=== PATIENT | female | born 1945 | race Caucasian/White ===

== ENCOUNTER → 2017-11-20 08:46 | Outpatient (CLI) | payer MEDICARE, SELFPAY ==
[2017-11-20 10:35] LABS: Absolute Lymphocyte Count 1.54 X10^3/ul (0.83-4.51); Absolute Neutrophil Count 3.2 X10^3/uL (2.0-7.7); Basophil# 0.04 X10^3/uL; Basophil% 0.7 % (0-1); Eosinophil# 0.22 X10^3/uL; Hematocrit 42.5 % (37-47); Hemoglobin 14.3 g/dl (12.0-15.0); Lymphocyte # 1.54 X10^3/ul (4.0); Lymphocyte % 27.9 % (19-41); Mean Corp Hgb Conc 33.6 g/gl (32-36); Mean Corpuscular Hgb 32.9 pg (27.0-32.0); Mean Corpuscular Volume 97.9 fL (81-99); Mean Platelet Vol. 10.7 fl (6.2-12.0); Monocyte# 0.45 X10^3/uL; Monocyte% 8.2 % (0-10); Neutrophil # 3.24 X10^3/uL (2.7-7.7); Neutrophil % 58.8 % (47-70); Platelet Count 231 K/mm3 (150-450); RBC Distribution Width CV 12.2 % (11.6-14.6); RBC Distribution Width SD 43.3 fl (35.1-43.9); Red Blood Count 4.34 M/mm3 (4.2-5.4); White Blood Count 5.5 K/mm3 (4.4-11.0)
[2017-11-20 10:38] LABS: POSITIVE COUNT NO; POSITIVE DIFFERENTIAL NO; POSITIVE MORPHOLOGY NO
[2017-11-20 11:00] LABS: AST(SGOT) 53 U/L (15-37); Alanine Aminotransfer ALT/SGPT 27 U/L (13-56); Albumin, Serum 3.8 g/dL (3.2-5.0); Alkaline Phosphatase 76 U/L (45-117); Anion Gap 9 (5-15); BUN 13 mg/dL (7-18); BUN/Creat Ratio 15.9 RATIO (10-20); Calcium,Total 8.9 mg/dL (8.5-10.1); Chloride 108 mmol/L (98-107); Cholesterol 202 mg/dL (200); Creatinine, Serum 0.82 mg/dL (0.55-1.02); EST Glomerular Filtration Rate 73 mL/min (>60); Est Glom Filt Rate - Afr Amer 88 mL/min (>60); Free T3 2.4 pg/mL (2.18-3.98); Globulin 3.7 g/dL (2.2-4.2); Glucose 96 mg/dL (74-106); High Density Lipoprotein 52 mg/dL; Potassium 3.8 mmol/L (3.5-5.1); Protein, Total 7.5 g/dL (6.4-8.2); Sodium Level 140 mmol/L (136-145); T4 Free Direct 0.82 ng/dL (0.76-1.46); Thyroid Stim Hormone (TSH) 2.83 uIU/mL (0.358-3.74)
== END ==
PROVIDERS: Family Provider Family Medicine; PCP Family Medicine; Visit Provider Family Medicine
DX: E03.9 Hypothyroidism, unspecified (principal); F42.9 Obsessive-compulsive disorder, unspecified
CPT/HCPCS: 36415; 80053; 82465; 83718; 84439; 84443; 84481; 85025

== ENCOUNTER 2017-12-25 15:30 | Outpatient (RCR) | payer MEDICARE, SELFPAY ==
--- NOTE | 2017-11-30 14:06 | HP.PTEVAL_ITS ---
Patient's Visit Information FARIDA PERES is a 72 year old F referred to Physical Therapy by Delio Gipson with a diagnosis of B L>R RC tendonitis. Date of Evaluation: 11/30/17 Physical Therapist: Giovanna Cordova - Visit Plan Frequency: 1x/Week Duration: 4 Weeks Plan: 1X/ week for HEP for stretching into IR of B shoulders, AROM, AAROM, PROM of B shoulders, postural exercises, scapular strength, RC strength with HEP and ultrasould and MT for pain control. - Subjective Subjective: Pt reports that her shoulders (especially the L one) have been painful for YEARS. She has N hips replaced and now has had her cateracts done. She did get knocked off a stack of pillow uears ago and she did put her L arm back and it was painful for weeks. She did not get any x-rays done as of yet. Her shoulders dont hurt in sitting unless it is after about 7:30 at night and then she takes 2 tylenol at dinner time and sometimes with breakfast. The worst pain is in bed....she can not lye on L shoulder and soemtimes bothers her on the R shoulder. Pt would feel the pain move from the lateral side of her arm downward. When she gets the pain it is very sharp and painful to roll over on the side. In evenings it is more of an achy pain. She points to the posterior shoulder aspect of B shoulders. Has a hardtime unfstenening her bra. Holding her grandson she is afraid that she will drop him. - Pain R shoulder pain Pain Intensity (Out of 10): 0 Pain Intensity Range: 5 L shoulder Pain Intensity (Out of 10): 0 Pain Intensity Range: 6 - Objective Sitting posture: Sits with rounded shoulders. Full B shoulder AROM in all planes but tight IR... L to PSIS and R approx L3. Increase pain with IR at end range PROM L worse than the R..... Palpation: tender L posterior shoulder and R anterior shoulder under acromion. UE MMT: shld flex B 4/5, Shld abd B 4/5, Shld ER B 4/5, Shld IR B 4/5. Palpation: tender also L mid trap (knot palpable ). - Goals Goal 1:: I HEP Goal Time Frame: 4-6 Weeks Goal 2:: Decrease shouder pain to 2/10 at the most Goal Time Frame: 4-6 Weeks Goal 3:: sit with increase posture duing treatment sessions Goal Time Frame: 4-6 Weeks Goal 4:: Increase B shoulder PROM and AROM to WNL Goal Time Frame: 4-6 Weeks - Rehabilitation Potential Rehabilitation Potential: Good - Anticipated Interventions Patient/Client Instruction: Educate patient on: Plan of Care For the Purpose of:: To decrease pain, To decrease swelling/inflammation, To increase ROM, To improve nutrient delivery to tissue, To increase oxygenation perfusion, To improve muscle performance and motor function, To improve ability to perform ADL's, To increase tolerance to activity/condition/position, To decrease soft tissue restriction, To increase flexibility/ROM Therapeutic Exercise to Include: Strength training, Postural training, Flexibilty training, Passive ROM, Active ROM, Scapular Strength/Stabilization For the Purpose of:: To decrease pain, To decrease swelling/inflammation, To increase ROM, To improve nutrient delivery to tissue, To increase oxygenation perfusion, To improve muscle performance and motor function, To improve ability to perform ADL's, To increase tolerance to activity/condition/position, To improve health of tissue, To decrease soft tissue restriction, To increase flexibility/ROM Manual Therapy Techniques to Include: Passive ROM, Soft tissue mobilization For the Purpose of:: To decrease pain, To decrease swelling/inflammation, To increase ROM, To improve nutrient delivery to tissue, To increase oxygenation perfusion, To improve muscle performance and motor function, To improve health of tissue, To decrease soft tissue restriction, To increase flexibility/ROM Cryotherapy (ice pack, ice massage): Yes Thermo therapy (hot pack): Yes Ultrasound (thermal/non thermal): Yes For the Purpose of:: To decrease pain, To decrease swelling/inflammation, To increase ROM, To improve nutrient delivery to tissue Thank you for the opportunity to evaluate your patient. For Medicare and Medicare HMO plans, please review the plan of care and approve it. It will need to be FAXED BACK to us at [phone] for Medicare purposes. Please let me know if there are questions or concerns regarding this plan of care. Physician Signature: Date:
--- NOTE | 2017-12-25 15:30 | DT_ITS ---
This patient was seen during an EMR downtime December 24, 2017 - December 31, 2017. This patient may have a combination of paper and electronic documentation or all paper documentation. All documentation is viewable within the e-chart portion of [facility] for each patient visit.
--- NOTE | 2018-04-03 17:14 | HP.PT.NRP ---
HP - Discharge Summary (1) - Patient Information FARIDA PERES was seen in my office for initial evaluation on 11/30/17. The following Plan of Care was established for this patient: Initial Frequency: 1x/Week Initial Duration: 4 Weeks - Anticipated Interventions Patient/Client Instruction: Educate patient on: Plan of Care For the Purpose of:: To decrease pain, To decrease swelling/inflammation, To increase ROM, To improve nutrient delivery to tissue, To increase oxygenation perfusion, To improve muscle performance and motor function, To improve ability to perform ADL's, To increase tolerance to activity/condition/position, To decrease soft tissue restriction, To increase flexibility/ROM Therapeutic Exercise to Include: Strength training, Postural training, Flexibilty training, Passive ROM, Active ROM, Scapular Strength/Stabilization For the Purpose of:: To decrease pain, To decrease swelling/inflammation, To increase ROM, To improve nutrient delivery to tissue, To increase oxygenation perfusion, To improve muscle performance and motor function, To improve ability to perform ADL's, To increase tolerance to activity/condition/position, To improve health of tissue, To decrease soft tissue restriction, To increase flexibility/ROM Manual Therapy Techniques to Include: Passive ROM, Soft tissue mobilization For the Purpose of:: To decrease pain, To decrease swelling/inflammation, To increase ROM, To improve nutrient delivery to tissue, To increase oxygenation perfusion, To improve muscle performance and motor function, To improve health of tissue, To decrease soft tissue restriction, To increase flexibility/ROM Cryotherapy (ice pack, ice massage): Yes Thermo therapy (hot pack): Yes Ultrasound (thermal/non thermal): Yes For the Purpose of:: To decrease pain, To decrease swelling/inflammation, To increase ROM, To improve nutrient delivery to tissue This patient was last seen in our office 12/25/17. Pertinent comments regarding their Physical therapy will appear below: [facility] PT as pt did not schedule further appointments. At this point I will be discontinuing this patient from physical therapy. I would be happy to see this patient again in the future if found appropriate by the physician. Thank you! Giovanna Cordova
== END 2017-12-25 19:00 | disposition home or self-care (01) ==
LOC: PT 15:30
PROVIDERS: Family Provider Family Medicine; PCP Family Medicine; Visit Provider Family Medicine
DX: M75.22 Bicipital tendinitis, left shoulder (principal); M75.21 Bicipital tendinitis, right shoulder
CPT/HCPCS: 97035; 97110; 97161

== ENCOUNTER → 2018-06-05 12:30 | Outpatient (CLI) | payer MEDICARE, SELFPAY ==
[2018-06-05 14:41] LABS: AST(SGOT) 53 U/L (15-37); Alanine Aminotransfer ALT/SGPT 27 U/L (13-56); Albumin, Serum 3.7 g/dL (3.2-5.0); Alkaline Phosphatase 79 U/L (45-117); Anion Gap 9 (5-15); BUN 13 mg/dL (7-18); BUN/Creat Ratio 16.1 RATIO (10-20); Calcium,Total 9.2 mg/dL (8.5-10.1); Chloride 105 mmol/L (98-107); Creatinine, Serum 0.81 mg/dL (0.55-1.02); EST Glomerular Filtration Rate 74 mL/min (>60); Est Glom Filt Rate - Afr Amer 89 mL/min (>60); Globulin 3.7 g/dL (2.2-4.2); Glucose 78 mg/dL (74-106); Magnesium 2.2 mg/dL (1.6-2.6); Protein, Total 7.4 g/dL (6.4-8.2); Sodium Level 142 mmol/L (136-145); Thyroid Stim Hormone (TSH) 1.81 uIU/mL (0.358-3.74)
== END ==
PROVIDERS: Family Provider Family Medicine; PCP Family Medicine; Referring Provider Family Medicine; Visit Provider Family Medicine
DX: E03.9 Hypothyroidism, unspecified (principal); F42.9 Obsessive-compulsive disorder, unspecified
CPT/HCPCS: 36415; 80053; 83735; 84443

== ENCOUNTER → 2018-09-25 12:54 | Outpatient (CLI) | payer MEDICARE, SELFPAY ==
--- NOTE | 2018-09-25 12:57 | BI_ITS ---
MAMMOGRAPHY - BILATERAL SCREENING REASON FOR EXAM: Female, 73 years old. Routine annual screening examination. PERTINENT HISTORY: Non-contributory. TECHNIQUE: Digital bilateral breast angela (3D mammographic acquisition) in the CC and MLO projections. 2-D mediolateral oblique (MLO) and craniocaudad (CC) views of both breasts were obtained. CAD: Full Field Digital Mammography with Computer Added Detection was performed. COMPARISON: Comparison is made with prior study dated April 04, 2017 and July 02, 2014. FINDINGS: Breast Composition: There are scattered areas of fibroglandular density. There are no dominant masses or suspicious calcifications. No other significant abnormalities are identified. There has been no significant change since the prior study. BI/SCREENING MAMM (CAD), BILAT IMPRESSION: Stable bilateral screening mammogram. Yearly follow-up mammogram recommended. (A) ASSESSMENT CATEGORY: BIRADS Category 1: Negative. A letter regarding these results will be sent to the patient by the facility within 30 days. Approximately 10% of breast cancers are not detected by mammography. A normal mammogram should not delay biopsy of a clinically suspicious abnormality. [id number] Electronically Signed: Parish Yanez, at 15:06 EST , Service support ,
== END ==
PROVIDERS: Family Provider Family Medicine; PCP Family Medicine; Visit Provider Obstetrics & Gynecology Gynecology
DX: Z12.31 Encounter for screening mammogram for malignant neoplasm of breast (principal)
CPT/HCPCS: 77063; 77067

== ENCOUNTER → 2018-12-17 09:26 | Outpatient (CLI) | payer MEDICARE, SELFPAY ==
[2018-12-17 12:56] LABS: Anion Gap 10 (5-15); BUN 15 mg/dL (7-18); Calcium,Total 9.2 mg/dL (8.5-10.1); Chloride 105 mmol/L (98-107); Cholesterol 215 mg/dL (200); Creatinine, Serum 0.88 mg/dL (0.55-1.02); EST Glomerular Filtration Rate 66 mL/min (>60); Est Glom Filt Rate - Afr Amer 80 mL/min (>60); Glucose 90 mg/dL (74-106); High Density Lipoprotein 56 mg/dL; Potassium 3.9 mmol/L (3.5-5.1); Sodium Level 141 mmol/L (136-145); Thyroid Stim Hormone (TSH) 2.94 uIU/mL (0.358-3.74); Triglycerides 151 mg/dL; Very Low Density Lipoprotein 30 mg/dL (5-40)
== END ==
PROVIDERS: Family Provider Family Medicine; PCP Family Medicine; Referring Provider Nurse Practitioner Family; Visit Provider Nurse Practitioner Family
DX: E03.9 Hypothyroidism, unspecified (principal); R68.2 Dry mouth, unspecified; E78.2 Mixed hyperlipidemia
CPT/HCPCS: 36415; 80048; 80061; 84443

== ENCOUNTER → 2019-08-08 08:43 | Outpatient (CLI) | payer MEDICARE, SELFPAY ==
[2019-08-08 10:09] LABS: Absolute Lymphocyte Count 1.65 X10^3/uL (0.83-4.51); Absolute Neutrophil Count 3.3 X10^3/uL (2.0-7.7); Basophil# 0.05 X10^3/uL; Basophil% 0.9 % (0-1); Eosinophil# 0.25 X10^3/uL; Eosinophils% 4.3 % (0-5); Hematocrit 43.1 % (37-47); Hemoglobin 14.2 g/dL (12.0-15.0); Lymphocyte # 1.65 X10^3/ul (4.0); Lymphocyte % 28.7 % (19-41); Mean Corp Hgb Conc 32.9 g/dL (32-36); Mean Corpuscular Hgb 32.3 pg (27.0-32.0); Mean Corpuscular Volume 98.2 fL (81-99); Mean Platelet Vol. 10.4 fl (6.2-12.0); Monocyte# 0.49 X10^3/uL; Monocyte% 8.5 % (0-10); NRBC Flagged by Analyzer 0 % (0-5); Neutrophil # 3.28 X10^3/uL (2.7-7.7); Neutrophil % 57.1 % (47-70); Platelet Count 223 K/mm3 (150-450); RBC Distribution Width CV 11.9 % (11.6-14.6); RBC Distribution Width SD 43.6 fl (35.1-43.9); Red Blood Count 4.39 M/mm3 (4.2-5.4); White Blood Count 5.8 K/mm3 (4.4-11.0)
[2019-08-08 10:25] LABS: AST(SGOT) 57 U/L (15-37); Alanine Aminotransfer ALT/SGPT 27 U/L (13-56); Albumin, Serum 3.6 g/dL (3.2-5.0); Alkaline Phosphatase 84 U/L (45-117); Anion Gap 7 (5-15); BUN 15 mg/dL (7-18); BUN/Creat Ratio 17.8 RATIO (10-20); Calcium,Total 9.1 mg/dL (8.5-10.1); Chloride 106 mmol/L (98-107); Cholesterol 244 mg/dL (200); Creatinine, Serum 0.84 mg/dL (0.55-1.02); EST Glomerular Filtration Rate 70 mL/min (>60); Est Glom Filt Rate - Afr Amer 85 mL/min (>60); Globulin 3.7 g/dL (2.2-4.2); Glucose 92 mg/dL (74-106); High Density Lipoprotein 61 mg/dL; Protein, Total 7.3 g/dL (6.4-8.2); Sodium Level 139 mmol/L (136-145); Thyroid Stim Hormone (TSH) 4.13 uIU/mL (0.358-3.74); Triglycerides 172 mg/dL; Very Low Density Lipoprotein 34 mg/dL (5-40)
== END ==
PROVIDERS: PCP Family Medicine; Referring Provider Family Medicine; Visit Provider Family Medicine
DX: E78.2 Mixed hyperlipidemia (principal); E03.9 Hypothyroidism, unspecified; F42.9 Obsessive-compulsive disorder, unspecified
CPT/HCPCS: 36415; 80053; 80061; 84443; 85025

== ENCOUNTER → 2020-06-23 10:38 | Outpatient (CLI) | payer MEDICARE, SELFPAY ==
--- NOTE | 2020-06-23 10:42 | US_ITS ---
STUDY: SUPERFICIAL ULTRASOUND - LEFT SUPRACLAVICULAR FOSSA. REASON FOR EXAM: Female, 75 years old. FULLNESS OF THE LEFT SUPRACLAVICULAR FOSSA TECHNIQUE: A superficial ultrasound was performed with real-time and static merino-scale imaging. COMPARISON: None. FINDINGS: Directed sonographic evaluation of the left supraclavicular fossa was obtained. No sonographic abnormality is seen. US/Head/Neck Soft Tissue IMPRESSION: No sonographic abnormality is seen. Electronically Signed: Parish Yanez, at 15:05 EST , Service support ,
== END ==
PROVIDERS: PCP Family Medicine; Referring Provider Family Medicine; Visit Provider Family Medicine
DX: R22.2 Localized swelling, mass and lump, trunk (principal)
CPT/HCPCS: 76536

== ENCOUNTER → 2020-12-13 14:13 | Outpatient (CLI) | payer MEDICARE, SELFPAY ==
[2020-12-13 18:15] LABS: Absolute Lymphocyte Count 1.36 X10^3/uL (0.83-4.51); Absolute Neutrophil Count 3.1 X10^3/uL (2.0-7.7); Basophil# 0.04 X10^3/uL; Basophil% 0.8 % (0-1); Eosinophil# 0.16 X10^3/uL; Eosinophils% 3.1 % (0-5); Hematocrit 41.4 % (37-47); Hemoglobin 13.6 g/dL (12.0-15.0); Lymphocyte # 1.36 X10^3/ul (0.83-4.51); Lymphocyte % 26.7 % (19-41); Mean Corp Hgb Conc 32.9 g/dL (32-36); Mean Corpuscular Hgb 32.3 pg (27.0-32.0); Mean Corpuscular Volume 98.3 fL (81-99); Mean Platelet Vol. 11.1 fl (6.2-12.0); Monocyte# 0.38 X10^3/uL; Monocyte% 7.5 % (0-10); NRBC Flagged by Analyzer 0 % (0-5); Neutrophil # 3.13 X10^3/uL (2.7-7.7); Neutrophil % 61.5 % (47-70); Platelet Count 219 K/mm3 (150-450); RBC Distribution Width CV 12.3 % (11.6-14.6); RBC Distribution Width SD 44.3 fl (35.1-43.9); Red Blood Count 4.21 M/mm3 (4.2-5.4); White Blood Count 5.1 K/mm3 (4.4-11.0)
[2020-12-13 19:00] LABS: AST(SGOT) 55 U/L (15-37); Alanine Aminotransfer ALT/SGPT 25 U/L (13-56); Albumin, Serum 3.7 g/dL (3.2-5.0); Alkaline Phosphatase 84 U/L (45-117); Anion Gap 4 (5-15); BUN 15 mg/dL (7-18); BUN/Creat Ratio 18.2 RATIO (10-20); Calcium,Total 9.3 mg/dL (8.5-10.1); Chloride 107 mmol/L (98-107); Creatinine, Serum 0.82 mg/dL (0.55-1.02); EST Glomerular Filtration Rate 71 mL/min (>60); Est Glom Filt Rate - Afr Amer 86 mL/min (>60); Free T3 2.2 pg/mL (2.18-3.98); Globulin 3.8 g/dL (2.2-4.2); Glucose 111 mg/dL (74-106); Protein, Total 7.5 g/dL (6.4-8.2); Sodium Level 138 mmol/L (136-145); T4 Free Direct 0.76 ng/dL (0.76-1.46); Thyroid Stim Hormone (TSH) 2.22 uIU/mL (0.358-3.74)
[2020-12-16 12:30] LABS: Vitamin D,25 Hydroxy 33.6 ng/mL
== END ==
PROVIDERS: PCP Family Medicine; Visit Provider Family Medicine
DX: E03.9 Hypothyroidism, unspecified (principal); F42.9 Obsessive-compulsive disorder, unspecified; M85.80 Other specified disorders of bone density and structure, unspecified site
CPT/HCPCS: 36415; 80053; 82306; 84439; 84443; 84481; 85025

== ENCOUNTER → 2021-12-15 | Outpatient (CLI) | payer MEDICARE, SELFPAY ==
[2021-12-15 17:43] LABS: Absolute Lymphocyte Count 1.71 X10^3/uL (0.83-4.51); Absolute Neutrophil Count 3.8 X10^3/uL (2.0-7.7); Basophil# 0.05 X10^3/uL; Basophil% 0.8 % (0-1); Eosinophil# 0.25 X10^3/uL; Eosinophils% 3.9 % (0-5); Hematocrit 40.5 % (37-47); Hemoglobin 13.9 g/dL (12.0-15.0); Lymphocyte # 1.71 X10^3/ul (0.83-4.51); Lymphocyte % 26.8 % (19-41); Mean Corp Hgb Conc 34.3 g/dL (32-36); Mean Corpuscular Hgb 33.7 pg (27.0-32.0); Mean Corpuscular Volume 98.1 fL (81-99); Mean Platelet Vol. 11.5 fl (6.2-12.0); Monocyte# 0.53 X10^3/uL; Monocyte% 8.3 % (0-10); NRBC Flagged by Analyzer 0 % (0-5); Neutrophil % 59.7 % (47-70); Platelet Count 223 K/mm3 (150-450); RBC Distribution Width CV 12.3 % (11.6-14.6); RBC Distribution Width SD 44.7 fl (35.1-43.9); Red Blood Count 4.13 M/mm3 (4.2-5.4); White Blood Count 6.4 K/mm3 (4.4-11.0)
[2021-12-15 18:49] LABS: ALB/GLOB Ratio 1.1 RATIO (0.9-2.4); AST(SGOT) 46 U/L (15-37); Alanine Aminotransfer ALT/SGPT 24 U/L (13-56); Albumin, Serum 3.7 g/dL (3.2-5.0); Alkaline Phosphatase 76 U/L (45-117); Anion Gap 6 (5-15); BUN 22 mg/dL (7-18); BUN/Creat Ratio 29.2 RATIO (10-20); Chloride 107 mmol/L (98-107); Creatinine, Serum 0.75 mg/dL (0.55-1.02); EST Glomerular Filtration Rate 79 mL/min (>60); Est Glom Filt Rate - Afr Amer 95 mL/min (>60); Globulin 3.4 g/dL (2.2-4.2); Glucose 93 mg/dL (74-106); Potassium 4.1 mmol/L (3.5-5.1); Protein, Total 7.1 g/dL (6.4-8.2); Sodium Level 140 mmol/L (136-145); T4 Free Direct 0.91 ng/dL (0.76-1.46); Thyroid Stim Hormone (TSH) 1.42 uIU/mL (0.358-3.74)
== END | disposition home or self-care (01) ==
LOC: MTLAB 15:43
PROVIDERS: PCP Family Medicine; Referring Provider Family Medicine; Visit Provider Family Medicine
DX: M19.012 Primary osteoarthritis, left shoulder (principal); R61 Generalized hyperhidrosis; E03.9 Hypothyroidism, unspecified
CPT/HCPCS: 36415; 80053; 84439; 84443; 85025

== ENCOUNTER → 2022-09-13 | Outpatient (CLI) | payer MEDICARE, SELFPAY ==
[2022-09-13 15:10] LABS: Absolute Lymphocyte Count 1.37 X10^3/uL (0.83-4.51); Absolute Neutrophil Count 4.9 X10^3/uL (2.0-7.7); Basophil# 0.04 X10^3/uL; Basophil% 0.6 % (0-1); Eosinophil# 0.14 X10^3/uL; Hematocrit 43.7 % (37-47); Lymphocyte # 1.37 X10^3/ul (0.83-4.51); Lymphocyte % 19.2 % (19-41); Mean Corpuscular Hgb 32.6 pg (27.0-32.0); Mean Corpuscular Volume 101.6 fL (81-99); Mean Platelet Vol. 10.8 fl (6.2-12.0); Monocyte% 8.4 % (0-10); NRBC Flagged by Analyzer 0 % (0-5); Neutrophil # 4.93 X10^3/uL (2.7-7.7); Neutrophil % 69.1 % (47-70); Platelet Count 216 K/mm3 (150-450); RBC Distribution Width CV 12.4 % (11.6-14.6); RBC Distribution Width SD 46.8 fl (35.1-43.9); White Blood Count 7.1 K/mm3 (4.4-11.0)
[2022-09-13 15:12] LABS: Erythrocyte Sedimentation Rate 7 mm/hr (0-30)
[2022-09-13 16:10] LABS: CRP < 2.90 mg/L (0.0-3.0)
== END | disposition home or self-care (01) ==
LOC: MTLAB 14:05
PROVIDERS: PCP Family Medicine; Referring Provider Ophthalmology; Visit Provider Ophthalmology
DX: R51.9 Headache, unspecified (principal)
CPT/HCPCS: 36415; 85025; 85652; 86140

== ENCOUNTER → 2022-12-28 | Outpatient (CLI) | payer MEDICARE, SELFPAY ==
--- NOTE | 2022-12-28 13:20 | BI_ITS ---
MAMMOGRAPHY - BILATERAL SCREENING REASON FOR EXAM: Female, 77 years old. Routine annual screening examination. PERTINENT HISTORY: Non-contributory. TECHNIQUE: Digital bilateral breast david (3D mammographic acquisition) in the CC and MLO projections. 2-D mediolateral oblique (MLO) and craniocaudad (CC) views of both breasts were obtained. CAD: Full Field Digital Mammography with Computer Added Detection was performed. COMPARISON: Comparison is made with prior study dated September 25, 2018 and July 04, 2017. FINDINGS: Breast Composition: There are scattered areas of fibroglandular density. There are no dominant masses or suspicious calcifications. No other significant abnormalities are identified. There has been no significant change since the prior study. BI/SCRN MAMM (CAD)W/DAVID BILAT IMPRESSION: Stable bilateral screening mammogram. Yearly follow-up mammogram recommended. (A) ASSESSMENT CATEGORY: BIRADS Category 1: Negative. A letter regarding these results will be sent to the patient by the facility within 30 days. Approximately 10% of breast cancers are not detected by mammography. A normal mammogram should not delay biopsy of a clinically suspicious abnormality. [id number] Electronically Signed: Parish Yanez MD at 14:32 EDT ,
--- NOTE | 2022-12-28 13:21 | BD_ITS ---
STUDY: DUAL ENERGY X-RAY ABSORPTIOMETRY / DXA REASON FOR EXAM: Female, 77 years old. M810 TECHNIQUE: Bone Mineral Density (BMD) measurements of lumbar spine and left forearm were obtained. COMPARISON: Comparison is made with prior study dated July 02, 2014. FINDINGS: Lumbar Spine (L1-L4): g/cm2 (0.730) / T-score (-2.3) / Z-score (0.2) Findings are suggestive of osteopenia with a high fracture risk. Left Forearm: g/cm2 (0.578) / T-score (0.0) / Z-score (3.0) The T-Scores on the most recent prior examination were: Lumbar Spine (L1-L4): There has been worsening of bone density since the previous examination. BD/Dexa Bone Density Study IMPRESSION: The patient is considered osteopenic as outlined below according to World [place] Organization (WHO) criteria with a high fracture risk. There has been worsening of bone density since the previous examination. Reference Information: The T-score is the number of standard deviations above or below the standard which is normal for young adults at their peak bone mineral density. The World Health Organization (WHO) interprets the T-scores as follows: Above -1 Normal bone density Between -1 and -2.5 Osteopenia Equal to / or below -2.5 Osteoporosis As a practical clinical guideline, osteopenia may be graded as follows: Mild -1 through -1.5 Moderate -1.6 through -2.0 Severe -2.1 through -2.4 The Z-score is the number of standard deviations above or below age-matched controls. A Z-score of less than -1.5 would be considered abnormal. References: 1. NIH Osteoporosis and Related Bone Diseases www osteo.org 2. International Society for Clinical Densitometry www iscd.org 3. National Osteoporosis Foundation www nof.org Electronically Signed: Parish Yanez MD at 8:49 EDT ,
== END | disposition home or self-care (01) ==
PROVIDERS: PCP Family Medicine; Referring Provider Obstetrics & Gynecology Gynecology; Visit Provider Obstetrics & Gynecology Gynecology
DX: Z12.31 Encounter for screening mammogram for malignant neoplasm of breast (principal); M81.0 Age-related osteoporosis without current pathological fracture
CPT/HCPCS: 77063; 77067; 77080

== ENCOUNTER → 2023-02-13 | Outpatient (CLI) | payer MEDICARE, SELFPAY | END | disposition home or self-care (01) | LOC: LABSPEC 09:56 | PROVIDERS: PCP Family Medicine; Referring Provider Family Medicine; Visit Provider Family Medicine | DX: J02.9 Acute pharyngitis, unspecified (principal) | CPT/HCPCS: 87070 ==

== ENCOUNTER → 2023-06-04 | Outpatient (CLI) | payer MEDICARE, SELFPAY ==
--- NOTE | 2023-06-04 14:16 | CT_ITS ---
STUDY: CT BRAIN WITH AND WITHOUT CONTRAST REASON FOR EXAM: Female, 78 years old. Daily headache that wake at night in AM with headache and L ear s RADIATION DOSAGE (If Supplied By Facility): CTDIvol = ( 44.99 ) mGy, DLP = ( 1547.23 ) mGycm TECHNIQUE: Transaxial CT imaging of the brain was performed pre and post contrast administration. The examination was performed with intravenous administration of IV 50mL Isovue-300. Individualized dose optimization techniques were used for this CT. COMPARISON: None. FINDINGS: Normal soft tissue structures. Normal calvarium. There is mild cerebral atrophy with widening of the extra-axial spaces and ventricular dilatation. There are areas of decreased attenuation within the white matter tracts of the supratentorial brain, consistent with microvascular disease changes. There are small punctate calcifications of the basal ganglia which are seen in the aging brain as a normal variant. Normal brainstem. Normal cerebellum. There is no intracranial hemorrhage. There are no findings of an acute ischemic infarction. Normal visualized paranasal sinuses. CT/Brain/Head W/WO Contrast IMPRESSION: Chronic involutional changes of the brain. Electronically Signed: Parish Yanez MD at 14:52 EST ,
[2023-06-04 14:44] LABS: CREATININE FINGERSTICK < 0.9 mg/dL (0.55-1.02); EGFR FINGERSTICK > 60.0000 mL/min (>60)
== END | disposition home or self-care (01) ==
LOC: CT 14:12
PROVIDERS: PCP Family Medicine; Visit Provider Family Medicine
DX: R51.9 Headache, unspecified (principal)
CPT/HCPCS: 70470; Q9967

== ENCOUNTER → 2023-06-25 | Outpatient (CLI) | payer MEDICARE, SELFPAY ==
--- NOTE | 2023-06-25 11:05 | MRI_ITS ---
STUDY: MRA OF THE HEAD WITHOUT CONTRAST REASON FOR EXAM: Female, 78 years old. L pulsatile headache and tinnitus TECHNIQUE: 3-D [id number] (TOF) imaging was performed with MIPs. The study was performed unenhanced. COMPARISON: None. FINDINGS: Normal bilateral petrous carotid arteries. Normal right cavernous carotid artery with a normal supraclinoid bifurcation. Normal left cavernous carotid artery with a normal supraclinoid bifurcation. Normal right A1 segments of the anterior cerebral artery. Normal left A1 segments of the anterior cerebral artery. Normal intact anterior communicating artery (ACOM). Normal bilateral A2 segments of the anterior cerebral arteries. Normal right M1 and M2 segments of the middle cerebral arteries, with a normal M1 bifurcation. Normal left M1 and M2 segments of the middle cerebral arteries, with a normal M1 bifurcation. 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 Normal left posterior communicating artery (PCOM). Normal bilateral vertebral arteries. Normal basilar artery with a normal basilar bifurcation. The visualized bilateral superior cerebellar (SCA) arteries are normal. Normal bilateral P1, P2 and visualized P3 segments of the posterior cerebral arteries. There is no demonstrated aneurysm of the [place]. There is no major vessel occlusion or hemodynamically significant stenosis. There is no demonstrated abnormality of the visualized brain. MRI/MRA Head ONLY without Contrast IMPRESSION: Normal MRA of the head Electronically Signed: Parrish Vargas MD at 23:17 EST ,
== END | disposition home or self-care (01) ==
LOC: MRI 11:00
PROVIDERS: PCP Family Medicine; Visit Provider Family Medicine
DX: H93.A9 Pulsatile tinnitus, unspecified ear (principal)
CPT/HCPCS: 70544

== ENCOUNTER → 2023-08-01 | Outpatient (CLI) | payer MEDICARE, SELFPAY ==
--- NOTE | 2023-08-01 08:15 | RAD_ITS ---
STUDY: X-RAY - ESOPHAGUS (BARIUM SWALLOW) WITH FLUOROSCOPY REASON FOR EXAM: Female, 78 years old. GERD, DYSPHAGIA TECHNIQUE: 29 view(s) of the esophagus were obtained following swallowing of barium. FLUOROSCOPY TIME (if supplied): (60 seconds) minutes/seconds COMPARISON: None. FINDINGS: There is no demonstrated esophageal foreign body. There is no demonstrated stricture or mucosal abnormality. Normal gastroesophageal junction, without a demonstrated hiatal hernia. The patient ingested a 12 mm tablet at bedtime without any difficulty. There is a 2.8 mm traction diverticulum in the mid distal esophagus. There is atherosclerotic calcification of the aortic arch with tortuosity of the descending aorta. Normal visualized pulmonary parenchyma. There are diffuse degenerative changes of the visualized thoracic spine. RAD/Esophagus Dual Contrast IMPRESSION: No evidence of gastroesophageal reflux. 2.8 mm traction diverticulum in the distal midportion of the esophagus. Electronically Signed: Parish Yanez MD at 14:21 EST ,
== END | disposition home or self-care (01) ==
LOC: RAD 08:07
PROVIDERS: PCP Family Medicine; Referring Provider Otolaryngology; Visit Provider Otolaryngology
DX: R13.10 Dysphagia, unspecified (principal); K21.9 Gastro-esophageal reflux disease without esophagitis
CPT/HCPCS: 74221

== ENCOUNTER → 2023-09-14 | Outpatient (CLI) | payer MEDICARE, SELFPAY ==
[2023-09-14 12:40] LABS: Cholesterol 246 mg/dL (200); High Density Lipoprotein 65 mg/dL; Triglycerides 142 mg/dL; Very Low Density Lipoprotein 28 mg/dL (5-40)
== END | disposition home or self-care (01) ==
LOC: MTLAB 09:58
PROVIDERS: PCP Family Medicine; Referring Provider Internal Medicine Cardiovascular Disease; Visit Provider Internal Medicine Cardiovascular Disease
DX: E03.9 Hypothyroidism, unspecified (principal); E78.5 Hyperlipidemia, unspecified
CPT/HCPCS: 36415; 80061

== ENCOUNTER → 2023-09-25 | Outpatient (CLI) | payer MEDICARE, SELFPAY ==
--- NOTE | 2023-09-25 12:36 | ECHOD_ITS ---
Reason For Study: PALPITATIONS Procedure This was a 2D Doppler, Color Flow transthoracic echocardiogram. Exam performed in department. Left Ventricle Normal LV size. Mild concentric left ventricular hypertrophy. The left ventricular ejection fraction is 65 %. Normal diastology for age. Right Ventricle Normal right ventricle. Atria The left and right atria are normal. Mitral Valve Trivial mitral valve insufficiency. Tricuspid Valve Trivial tricuspid valve insufficiency. Unable to estimate RV systolic pressure due to insufficient tricuspid regurgitant envelope. Aortic Valve Trisinus/trileaflet aortic valve. Pulmonic Valve The pulmonic valve is not well visualized. Trivial pulmonic valve insufficiency. Great Vessels Normal sized aortic root. Mildly calcified aortic root. Pericardium/Pleural No pericardial effusion. MMode/2D Measurements & Calculations LVIDd: 4.6 cm IVSd: 1.2 cm Ao root diam: 3.3 cm LVIDs: 3.2 cm LVPWd: 0.96 cm RVDd: 2.9 cm FS: 29.9 % LAV(MOD-bp): 40.9 ml LVAd ap4: 23.7 cm2 SV(MOD-sp4): 40.3 ml LAV(MOD-bp) Indexed: 23.0 ml/m2 LVLd ap4: 7.3 cm LAV(MOD-sp2): 46.3 ml EDV(MOD-sp4): 61.8 ml LAV(MOD-sp4): 36.2 ml EDV(sp4-el): 65.8 ml LVAs ap4: 12.0 cm2 LVLs ap4: 5.5 cm ESV(MOD-sp4): 21.5 ml ESV(sp4-el): 22.1 ml EF(MOD-sp4): 65.2 % EF(sp4-el): 66.5 % SV(sp4-el): 43.8 ml LA A4 area: 15.8 cm2 LA dimension(2D): 3.4 cm RA A4 area: 13.4 cm2 TAPSE: 1.9 cm Time Measurements MV dec time: 0.25 sec Doppler Measurements & Calculations MV E max joey: 53.0 cm/sec Lat Peak E' Joey: 6.7 cm/sec Med Peak E' Joey: 7.6 cm/sec MV A max joey: 74.7 cm/sec E/E' lat: 7.9 E/E' med: 6.9 MV E/A: 0.71 MV V2 max: 84.8 cm/sec MV P1/2t max joey: 59.8 cm/sec Ao V2 max: 139.2 cm/sec MV max P.9 mmHg MV P1/2t: 82.1 msec Ao max P.8 mmHg MV V2 mean: 45.9 cm/sec Ao V2 mean: 96.6 cm/sec MV mean P.96 mmHg MV dec slope: 213.3 cm/sec2 Ao mean P.3 mmHg MV V2 VTI: 17.0 cm MVA(P1/2t): 2.7 cm2 Ao V2 VTI: 28.2 cm AV (velocity ratio): 0.72 LV V1 max: 92.9 cm/sec PA V2 max: 88.3 cm/sec LV V1 max P.5 mmHg PA V2 mean: 54.9 cm/sec LV V1 mean P.9 mmHg PA V2 VTI: 15.3 cm LV V1 mean: 64.4 cm/sec LV V1 VTI: 20.3 cm ECHO/Echo Complete Interpretation Summary Mild concentric left ventricular hypertrophy. The left ventricular ejection fraction is 65 %. Mildly calcified aortic root. Ordering Physician: Osbaldo Aguilera Referring Physician: Delio Gipson Performed By: Hina Mullins, CONSUELOCS, RVT
--- OUTSIDE RECORDS SUMMARY | 2023-09-25 13:10 | XMS RPT_ITS | CCD ---
Author Name Unknown Address [address] [place] [address] Organization [facility] Care Team Providers Care Cut Off Sawyer Log Name Role Phone Arvind Gipson MD Primary Care Provider COLTON, GENE Aly Attending Unavailable GIPSON, ARVIND A Primary Care Unavailable GIPSON, ARVIND A Primary Care Unavailable COLTON, GENE A Attending Unavailable GIPSON, ARVIND A Primary Care Unavailable GIPSON, ARVIND A Primary Care Unavailable COLTON, GENE A Attending Unavailable GIPSON, ARVIND A Primary Care Unavailable COLTON, GENE A Attending Unavailable GIPSON, ARVIND A Referring Unavailable GIPSON, ARVIND A Primary Care Unavailable COLTON, GENE A Attending Unavailable COLTON, GENE A Attending Unavailable GIPSON, ARVIND A Primary Care Unavailable COLTON, GENE A Attending Unavailable GIPSON, ARVIND A Primary Care Unavailable COLTON, GENE A Attending Unavailable GIPSON, ARVIND A Primary Care Unavailable COLTON, GENE A Attending Unavailable GIPSON, ARVIND A Primary Care Unavailable COLTON, GENE A Attending Unavailable GIPSON, ARVIND A Primary Care Unavailable Allergies Allergy Classification Reported Allergen(s) Allergy Type Date of Onset Reaction(s) Facility (4 sources) Sulfonamides (Antibiotic); Translations: [SULFA (SULFONAMIDE ANTIBIOTICS)] Propensity to adverse reactions 7 Vomiting [facility] Work Phone: Medications Completed/Discontinued Medications Medication Drug Class(es) Dates Sig (Normalized) Sig (Original) amoxicillin 500 mg oral capsule (3 sources) Penicillin-class Antibacterial Start: 12-19-2018 take 4 capsules by mouth every hour amoxicillin (POLYMOX, AMOXIL) 500 mg capsule Indications: Status post right hip replacement , Status post left hip replacement Take 4 capsules by mouth as directed. ONE HOUR PRIOR TO DENTAL WORK 4 capsule 3 12/19/2018 Active Problems Problem Classification Problem Date Documented Da te Episodic/Chronic Adjustment disorders (2 sources) Adjustment disorder with mixed anxiety and depressed mood; Translations: [Adjustment disorder with depressed mood] Onset: 09-06-2022 Chronic Anxiety disorders (1 source) Obsessive-compulsiv e disorder, unspecified; Translations: [Obsessive-compulsi ve disorder, unspecified type] Onset: 10-04-2022 Chronic Other connective tissue disease (3 sources) History of total hip arthroplasty; Translations: [Presence of unspecified artificial hip joint] Onset: 08-11-2014 08-11-2014 Chronic Other upper respiratory infections (1 source) Viral upper respiratory tract infection; Translations: [Acute upper respiratory infection, unspecified] 01-28-2023 Episodic Residual codes; unclassified (1 source) Pain; Translations: [Pain, unspecified] Episodic Results Test Name Value Interpretation Reference Range Facil ity Vital Signs Date Time Vital Sign Value Performing Clinician Meme gooden 01-28-2023 12:55-0400 Body temperature 98.01 [degF] Maggie Athy PA-C Work Phone: [facility] 01-28-2023 12:55-0400 Body weight 74.39 kg Maggie Athy PA-C Work Phone: [facility] 01-28-2023 12:55-0400 Diastolic blood pressure 76 mm[Hg] Maggie Athy PA-C Work Phone: [facility] 01-28-2023 12:55-0400 Heart rate 86 /min Maggie Athy PA-C Work Phone: [facility] 01-28-2023 12:55-0400 Respiratory rate 16 /min Maggie Athy PA-C Work Phone: [facility] 01-28-2023 12:55-0400 SaO2% (BldA) [Mass fraction] 98 % Maggie Athy PA-C Work Phone: [facility] 01-28-2023 12:55-0400 Systolic blood pressure 122 mm[Hg] Maggie Athy PA-C Work Phone: [facility] Encounters Encounter Date Encounter Type Care Provider Facility Start: 01-29-2023 Telephone encounter Monet Smith APRN.CNP Work Phone: [facility] Plan of Treatment Date Care Activity Detail Author Start: 03-23-2023 Influenza vaccination INFLUENZA (#1) [facility] Start: 01-28-2023 End: 02-11-2023 Influenza virus A and B RNA and SARS-CoV-2 (COVID-19) N gene panel - Respiratory specimen by KATLYN with probe detection [facility] Work Phone: Payers Date Payer Category Payer Medicare MMO MEDICARE MMO [employer] PPO [id number] 2021-Present [phone] [address] [place] [address] PPO [id number] 2018 Unknown [id number] Social History Date Type Detail Facility Start: 12-19-2018 End: 01-28-2023 Tobacco smoking status NHIS Never smoked tobacco [facility] Start: 12-19-2018 End: 01-28-2023 Tobacco use and exposure Smokeless tobacco non-user [facility] Start: 12-19-2018 End: 01-28-2023 Alcohol intake Current drinker of alcohol (finding) [facility] Start: 12-19-2018 End: 12-06-2022 Alcohol intake [facility] Start: 09-15-2016 Alcohol Comment every other month 1 glass [facility] Start: 1945 Sex Assigned At Not on file C [facility] Start: 12-06-2022 End: 01-28-2023 Tobacco use panel [facility] National Score (1-10 0), lower number is lower risk 70 [facility] Medical Equipment Procedure Code Equipment Code Equipment Origin al Text Equipment Identifier Dates Head Fem 32mm V4 0 Blx D - [id number] Start: 03-25-2014 Clinical Notes 06-24-2014 to 01-29-2023 Telephone Encounter - Rica Jaime MA - 01/29/2023 10:08 AM EDTTelephone Encounter - Rica Jaime MA - 01/29/2023 10:07 AM Jamaal Granados PA-C - 01/28/2023 1:26 PM EDT Note Date & Type Note Facility 01-29-2023 Miscellaneous Notes Patient notified of results, verbalized understanding. Rica Jaime MA ----- Message from Monet Harper APRN.KIDNEY PULLER sent at 01/29/2023 7:15 AM EDT ----- Please advise patient the COVID and flu test was negative. documented in this encounter [facility] 01-28-2023 Note HNO ID: [id number] Author: Maggie Granados PA-C Service: ? Author Type: Physician Palliative Care Nurse Practitioner Type: Progress Notes Filed: 01/28/2023 1:36 PM Note Text: This note was created using [employer]. Subjective Wilma Jones is a 77 year old female. HPI Patient presents with a chief complaint of sore throat, congestion, mild cough. She states this started 3 days ago. Review of Systems Constitutional: Positive for chills and fatigue. HENT: Positive for congestion, sore throat and tinnitus. Negative for ear pain. Respiratory: Positive for cough. Cardiovascular: Negative. Gastrointestinal: Negative. Genitourinary: Negative. Musculoskeletal: Positive for myalgias. Neurological: Positive for headaches. All other systems reviewed and are negative. PAST MEDICAL HISTORY Diagnosis Date Diverticulosis of colon (without mention of hemorrhage) Dry mouth OA (osteoarthritis) of hip PMH - PAST MEDICAL HISTORY OF OCD PMH - PAST MEDICAL HISTORY OF osteoporopsis PMH - PAST MEDICAL HISTORY OF thyroid problems PMH - PAST MEDICAL HISTORY OF problems with stool changes Unspecified constipation Current Outpatient Medications Medication Sig Dispense Refill amoxicillin (POLYMOX, AMOXIL) 500 mg capsule Take 4 capsules by mouth as directed. ONE HOUR PRIOR TO DENTAL WORK 4 capsule 3 Cholecalciferol, Vitamin D3, (VITAMIN D-3) 2,000 unit cap Take by mouth. pilocarpine 5 mg tablet Take 5 mg by mouth as needed. FLUTICASONE PROPIONATE (FLUTICASONE NASAL) Use 50 mcg in the nose as needed. CLOMIPRAMINE 50 MG CAP Take one(1) tablet each night 0 ZOLOFT 50 MG TAB 1/2 tablet daily. 0 LEVOTHYROXINE 50 MCG TAB Take one(1) tablet daily. 0 CENTRUM SILVER TAB Take one(1) tablet daily. 0 ASPIRIN 81 MG TAB Take one(1) tablet daily. 0 CALTRATE-600 PLUS VITAMIN D3 600 MG-400 UNIT TAB Take one(1) tablet two(2) times daily. (Patient not taking: Reported on 01/28/2023) 0 No current facility-administered medications for this visit. PAST SURGICAL HISTORY Procedure Laterality Date ARTHRP ACETBLR/PROX FEM PROSTC AGRFT/ALGRFT 03/25/2014 Hip replacement, total right ARTHRP ACETBLR/PROX FEM PROSTC AGRFT/ALGRFT 07/06/14 Hip Replacement , total left COLONOSCOPY FLX DX W/COLLJ SPEC WHEN PFRMD 10/17/2006 Colonoscopy COLONOSCOPY FLX DX W/COLLJ SPEC WHEN PFRMD 09/15/2016 Normal colonoscopy, 10 year [id number] if endoscopy indicated at that time TONSILLECTOMY PRIMARY/SECONDARY Tonsillectomy No family history on file. Social History Tobacco Use Smoking status: Never Smokeless tobacco: Never Substance Use Topics Alcohol use: Yes Alcohol/week: 1.0 standard drink of alcohol Types: 1 Glasses of wine per week Comment: every other month 1 glass Drug use: No Objective BP 122/76 Pulse 86 Temp 36.7 ?C (98 ?F) Resp 16 Wt 74.4 kg (164 lb) SpO2 98% BMI 30.99 kg/m? Physical Exam Vitals reviewed. Constitutional: Appearance: Normal appearance. HENT: Head: Normocephalic and atraumatic. Right Ear: Tympanic membrane, ear canal and external ear normal. Left Ear: Tympanic membrane, ear canal and external ear normal. Nose: Congestion present. Mouth/Throat: Mouth: Mucous membranes are moist. Pharynx: Pharyngeal swelling and posterior oropharyngeal erythema present. No oropharyngeal exudate or uvula swelling. Tonsils: No tonsillar exudate or tonsillar abscesses. Cardiovascular: Rate and Rhythm: Regular rhythm. Heart sounds: Normal heart sounds. Pulmonary: Effort: Pulmonary effort is normal. Breath sounds: Normal breath sounds. Musculoskeletal: Cervical back: Neck supple. Lymphadenopathy: Cervical: No cervical adenopathy. Skin: General: Skin is warm and dry. Findings: No rash. Neurological: General: No focal deficit present. Mental Status: She is alert and oriented to person, place, and time. Assessment and Plan ASSESSMENT/PLAN: 1. Viral URI - ICD9: 465.9, ICD10: J06.9 - Discussed viral etiology and rationale for treatment. - Alere Strep Test neg, no culture pending - Symptomatic treatment with prn analgesia - Supportive care with fluids and rest - Follow up in 3-5 days if symptoms persist or sooner if worsening of symptoms - STREP A MOLECULAR (POC) - COVID WITH FLUA+B, ROUTINE Maggie Granados PA-C [facility] 01-28-2023 History of Presen t illness Narrative This note was created using [employer]ree. Subjective Wilma Jones is a 77 year old female. HPI Patient presents with a chief complaint of sore throat, congestion, mild cough. She states this started 3 days ago. Review of Systems Constitutional: Positive for chills and fatigue. HENT: Positive for congestion, sore throat and tinnitus. Negative for ear pain. Respiratory: Positive for cough. Cardiovascular: Negative. Gastrointestinal: Negative. Genitourinary: Negative. Musculoskeletal: Positive for myalgias. Neurological: Positive for headaches. All other systems reviewed and are negative. PAST MEDICAL HISTORY Diagnosis Date Diverticulosis of colon (without mention of hemorrhage) Dry mouth OA (osteoarthritis) of hip PMH - PAST MEDICAL HISTORY OF OCD PMH - PAST MEDICAL HISTORY OF osteoporopsis PMH - PAST MEDICAL HISTORY OF thyroid problems PMH - PAST MEDICAL HISTORY OF problems with stool changes Unspecified constipation Current Outpatient Medications Medication Sig Dispense Refill amoxicillin (POLYMOX, AMOXIL) 500 mg capsule Take 4 capsules by mouth as directed. ONE HOUR PRIOR TO DENTAL WORK 4 capsule 3 Cholecalciferol, Vitamin D3, (VITAMIN D-3) 2,000 unit cap Take by mouth. pilocarpine 5 mg tablet Take 5 mg by mouth as needed. FLUTICASONE PROPIONATE (FLUTICASONE NASAL) Use 50 mcg in the nose as needed. CLOMIPRAMINE 50 MG CAP Take one(1) tablet each night 0 ZOLOFT 50 MG TAB 1/2 tablet daily. 0 LEVOTHYROXINE 50 MCG TAB Take one(1) tablet daily. 0 CENTRUM SILVER TAB Take one(1) tablet daily. 0 ASPIRIN 81 MG TAB Take one(1) tablet daily. 0 CALTRATE-600 PLUS VITAMIN D3 600 MG-400 UNIT TAB Take one(1) tablet two(2) times daily. (Patient not taking: Reported on 01/28/2023) 0 No current facility-administered medications for this visit. PAST SURGICAL HISTORY Procedure Laterality Date ARTHRP ACETBLR/PROX FEM PROSTC AGRFT/ALGRFT 03/25/2014 Hip replacement, total right ARTHRP ACETBLR/PROX FEM PROSTC AGRFT/ALGRFT 07/06/14 Hip Replacement , total left COLONOSCOPY FLX DX W/COLLJ SPEC WHEN PFRMD 10/17/2006 Colonoscopy COLONOSCOPY FLX DX W/COLLJ SPEC WHEN PFRMD 09/15/2016 Normal colonoscopy, 10 year [id number] if endoscopy indicated at that time TONSILLECTOMY PRIMARY/SECONDARY <AGE 10 Tonsillectomy No family history on file. Social History Tobacco Use Smoking status: Never Smokeless tobacco: Never Substance Use Topics Alcohol use: Yes Alcohol/week: 1.0 standard drink of alcohol Types: 1 Glasses of wine per week Comment: every other month 1 glass Drug use: No Objective BP 122/76 Pulse 86 Temp 36.7 C (98 F) Resp 16 Wt 74.4 kg (164 lb) SpO2 98% BMI 30.99 kg/m Physical Exam Vitals reviewed. Constitutional: Appearance: Normal appearance. HENT: Head: Normocephalic and atraumatic. Right Ear: Tympanic membrane, ear canal and external ear normal. Left Ear: Tympanic membrane, ear canal and external ear normal. Nose: Congestion present. Mouth/Throat: Mouth: Mucous membranes are moist. Pharynx: Pharyngeal swelling and posterior oropharyngeal erythema present. No oropharyngeal exudate or uvula swelling. Tonsils: No tonsillar exudate or tonsillar abscesses. Cardiovascular: Rate and Rhythm: Regular rhythm. Heart sounds: Normal heart sounds. Pulmonary: Effort: Pulmonary effort is normal. Breath sounds: Normal breath sounds. Musculoskeletal: Cervical back: Neck supple. Lymphadenopathy: Cervical: No cervical adenopathy. Skin: General: Skin is warm and dry. Findings: No rash. Neurological: General: No focal deficit present. Mental Status: She is alert and oriented to person, place, and time. Assessment and Plan ASSESSMENT/PLAN: 1. Viral URI - ICD9: 465.9, ICD10: J06.9 - Discussed viral etiology and rationale for treatment. - Alere Strep Test neg, no culture pending - Symptomatic treatment with prn analgesia - Supportive care with fluids and rest - Follow up in 3-5 days if symptoms persist or sooner if worsening of symptoms - STREP A MOLECULAR (POC) - COVID WITH FLUA+B, ROUTINE Maggie Granados PA-C documented in this encounter [facility] 12-06-2022 Note HNO ID: [id number] Author: Yordan Shine, PhD Service: ? Author Type: Psychologist Type: Progress Notes Filed: 12/06/2022 3:23 PM Note Text: [facility] Progress Note Wilma Jones 12/06/2022 [id number] PROVIDER: Yordan Shine, PhD CPT Code: Time: 50 minutes Setting: Patient seen in person Parties Present: Patient Treatment Modality/Interventions: Cognitive Behavioral Reassurance/Supportive Insight oriented Problem solving Processing of emotions MENTAL STATUS: Mood: variable, anxious Affect: mood-congruent Thoughts/Associations:goal directed Suicidal/Homicidal Ideation: None expressed or evidenced Other Prominent Symptoms: Therapy Focus/Content of Session: Self-care, Stress management, Mood/affect regulation, and Self-esteem MOOD: generally feels blessed OCD: explored how hypervigilance w mom who had Manic Depressive disorder, migraines and muscle spasms exacerbated the phobia of dirt that is invisible but likely both inherited and learned we discussed how pt has learned to cope by thinking about how an episode will eventually end and how she allows an amount of anxiety that is not overwhelming ... so behaviorally she can change the intensity, duration and frequence outcome: pt realized she has more control than she thought first x .. ... pt is aware he lost his and pt asked son if it might be ok to contact him who said yes Pt isnt sure she wants to ... and he is quite conservative ... PLAN: wonder about it and make a choice about 'running an experiment' MEDICATIONS: Per medical record: Current Outpatient Medications Medication Sig amoxicillin (POLYMOX, AMOXIL) 500 mg capsule Take 4 capsules by mouth as directed. ONE HOUR PRIOR TO DENTAL WORK Cholecalciferol, Vitamin D3, (VITAMIN D-3) 2,000 unit cap Take by mouth. pilocarpine 5 mg tablet Take 5 mg by mouth as needed. FLUTICASONE PROPIONATE (FLUTICASONE NASAL) Use 50 mcg in the nose as needed. CLOMIPRAMINE 50 MG CAP Take one(1) tablet each night ZOLOFT 50 MG TAB 1/2 tablet daily. LEVOTHYROXINE 50 MCG TAB Take one(1) tablet daily. CENTRUM SILVER TAB Take one(1) tablet daily. CALTRATE-600 PLUS VITAMIN D3 600 MG-400 UNIT TAB Take one(1) tablet two(2) times daily. ASPIRIN 81 MG TAB Take one(1) tablet daily. No current facility-administered medications for this visit. Psychiatric Medication Issues: see med record DIAGNOSIS: [place] I: OCD certain kinds of dirt Adjustment, mixed r/o PTSD grief [place] II: deferred [place] III: see med record [place] IV: OCD, concerns about partner's memory loss, fear of x , distress about daughter [place] V: 50-60 TREATMENT PROGRESS/ASSESSMENT: Progressing satisfactorily. TREATMENT PLAN/GOALS: Continue in therapy focusing on self-care, improving communication, affect management, and self-esteem. Next appointment: as scheduled Yordan Shine PhD [facility] 11-13-2022 Note HNO ID: [id number] Author: Yordan Shine PhD Service: ? Author Type: Psychologist Type: Progress Notes Filed: 11/22/2022 11:01 AM Note Text: [facility] Progress Note Wilma Jones 11/13/2022 [id number] PROVIDER: Yordan Shine PhD CPT Code: Time: 50 minutes Setting: Patient seen in person Parties Present: Patient Treatment Modality/Interventions: Cognitive Behavioral Reassurance/Supportive Insight oriented Problem solving Psychoeducation MENTAL STATUS: Mood: variable Affect: mood-congruent Thoughts/Associations:goal directed Suicidal/Homicidal Ideation: None expressed or evidenced Other Prominent Symptoms: Therapy Focus/Content of Session: Self-care, Stress management, and Mood/affect regulation Pt has a dresser since 2yo and it holds some sense of dirt that left her tearful and overwhelmed she has gotten rid of other like objects and cant touch it w/o washing but the drawers are ok and she stores things in them also had a thought of contact w first [place] who is aloof and isolative but went to some important family events dream .... woke screaming MEDICATIONS: Per medical record: Current Outpatient Medications Medication Sig amoxicillin (POLYMOX, AMOXIL) 500 mg capsule Take 4 capsules by mouth as directed. ONE HOUR PRIOR TO DENTAL WORK Cholecalciferol, Vitamin D3, (VITAMIN D-3) 2,000 unit cap Take by mouth. pilocarpine 5 mg tablet Take 5 mg by mouth as needed. FLUTICASONE PROPIONATE (FLUTICASONE NASAL) Use 50 mcg in the nose as needed. CLOMIPRAMINE 50 MG CAP Take one(1) tablet each night ZOLOFT 50 MG TAB 1/2 tablet daily. LEVOTHYROXINE 50 MCG TAB Take one(1) tablet daily. CENTRUM SILVER TAB Take one(1) tablet daily. CALTRATE-600 PLUS VITAMIN D3 600 MG-400 UNIT TAB Take one(1) tablet two(2) times daily. ASPIRIN 81 MG TAB Take one(1) tablet daily. No current facility-administered medications for this visit. Psychiatric Medication Issues: No change from previous appointment DIAGNOSIS: [place] I: OCD certain kinds of dirt Adjustment, mixed r/o PTSD grief [place] II: deferred [place] III: see med record [place] IV: OCD, concerns about partner's memory loss, fear of x , distress about daughter [place] V: 50-60 TREATMENT PROGRESS/ASSESSMENT: Progressing satisfactorily. TREATMENT PLAN/GOALS: Continue in therapy focusing on self-care, interpersonal relationships, affect management, and self-esteem. Next appointment: as scheduled Yordan Shine, PhD [facility] 11-01-2022 Note HNO ID: [id number] Author: Yordan Shine PhD Service: ? Author Type: Psychologist Type: Progress Notes Filed: 11/01/2022 3:00 PM Note Text: [facility] Progress Note Wilma Turnerhrie 11/01/2022 [id number] PROVIDER: Yordan Shine PhD Time: 50 minutes Setting: Patient seen in person Parties Present: Patient Treatment Modality/Interventions: Cognitive Behavioral Reassurance/Supportive Insight oriented Problem solving Goal setting Psychoeducation MENTAL STATUS: Mood: variable Affect: mood-congruent Thoughts/Associations:goal directed Suicidal/Homicidal Ideation: None expressed or evidenced Other Prominent Symptoms: Therapy Focus/Content of Session: Self-care, Mood/affect regulation, and Self-esteem grief: pt seems more at peace and at ease talking about Pernell OCD: gotten slowly somewhat less of an issue but still a disorder pt explored how DIRT continues to be a problem emotionally yet intellectually it is a mismatch she fears people in her home TOUCHING THINGS that then need to be cleaned 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 ONE HOUR PRIOR TO DENTAL WORK Cholecalciferol, Vitamin D3, (VITAMIN D-3) 2,000 unit cap Take by mouth. pilocarpine 5 mg tablet Take 5 mg by mouth as needed. FLUTICASONE PROPIONATE (FLUTICASONE NASAL) Use 50 mcg in the nose as needed. CLOMIPRAMINE 50 MG CAP Take one(1) tablet each night ZOLOFT 50 MG TAB 1/2 tablet daily. LEVOTHYROXINE 50 MCG TAB Take one(1) tablet daily. CENTRUM SILVER TAB Take one(1) tablet daily. CALTRATE-600 PLUS VITAMIN D3 600 MG-400 UNIT TAB Take one(1) tablet two(2) times daily. ASPIRIN 81 MG TAB Take one(1) tablet daily. No current facility-administered medications for this visit. Psychiatric Medication Issues: No change from previous appointment DIAGNOSIS: [place] I: OCD certain kinds of dirt Adjustment, mixed r/o PTSD grief [place] II: deferred [place] III: see med record [place] IV: OCD, concerns about partner's memory loss, fear of x , distress about daughter [place] V: 50-60 TREATMENT PROGRESS/ASSESSMENT: Progressing satisfactorily. TREATMENT PLAN/GOALS: Continue in therapy focusing on self-care, stress management, affect management, anxiety management, and self-esteem. Next appointment: as scheduled Yordan Shine, PhD [facility] 10-04-2022 Note HNO ID: [id number] Author: Yordan Shine, PhD Service: ? Author Type: Psychologist Type: Progress Notes Filed: 10/04/2022 2:17 PM Note Text: [facility] Progress Note Wilma Jones 10/04/2022 [id number] PROVIDER: Yordan Shine, PhD Time: 50 minutes Setting: Patient seen in person Parties Present: Patient Treatment Modality/Interventions: Cognitive Behavioral Reassurance/Supportive Insight oriented Problem solving Psychoeducation MENTAL STATUS: Mood: variable Affect: mood-congruent Thoughts/Associations:goal directed Suicidal/Homicidal Ideation: None expressed or evidenced Other Prominent Symptoms: Therapy Focus/Content of Session: Self-care, Mood/affect regulation, and Self-esteem Pt saw yusra in parking lot at store He was using a cane and brief eye contact he seems less of a physical threat and pt felt sad for him Discussed this chunk of life PLAN: work on making a good life getting end of life hings in order for sister in case pt dies or incompetent clutter: pt is finally getting some help to organize and get rid of things that linger in her way at home Health: Discussed how she is generally eating fairly well... goal less carbs and engaging interpersonally and w events driven by curiosity PLAN: become more physically active doing progressively better w the loss of her partner Pernell MEDICATIONS: Per medical record: Current Outpatient Medications Medication Sig amoxicillin (POLYMOX, AMOXIL) 500 mg capsule Take 4 capsules by mouth as directed. ONE HOUR PRIOR TO DENTAL WORK Cholecalciferol, Vitamin D3, (VITAMIN D-3) 2,000 unit cap Take by mouth. pilocarpine 5 mg tablet Take 5 mg by mouth as needed. FLUTICASONE PROPIONATE (FLUTICASONE NASAL) Use 50 mcg in the nose as needed. CLOMIPRAMINE 50 MG CAP Take one(1) tablet each night ZOLOFT 50 MG TAB 1/2 tablet daily. LEVOTHYROXINE 50 MCG TAB Take one(1) tablet daily. CENTRUM SILVER TAB Take one(1) tablet daily. CALTRATE-600 PLUS VITAMIN D3 600 MG-400 UNIT TAB Take one(1) tablet two(2) times daily. ASPIRIN 81 MG TAB Take one(1) tablet daily. No current facility-administered medications for this visit. Psychiatric Medication Issues: No change from previous appointment DIAGNOSIS: [place] I: OCD certain kinds of dirt Adjustment, mixed r/o PTSD grief [place] II: deferred [place] III: see med record [place] IV: OCD, concerns about partner's memory loss, fear of x , distress about daughter [place] V: 50-60 TREATMENT PROGRESS/ASSESSMENT: Progressing satisfactorily. TREATMENT PLAN/GOALS: Continue in therapy focusing on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
[2023-09-25 17:34] LABS: Absolute Lymphocyte Count 1.47 X10^3/uL (0.83-4.51); Absolute Neutrophil Count 4.4 X10^3/uL (2.0-7.7); Basophil# 0.05 X10^3/uL; Basophil% 0.8 % (0-1); Eosinophil# 0.13 X10^3/uL; Hematocrit 41.3 % (37-47); Hemoglobin 13.8 g/dL (12.0-15.0); Lymphocyte # 1.47 X10^3/ul (0.83-4.51); Lymphocyte % 22.5 % (19-41); Mean Corp Hgb Conc 33.4 g/dL (32-36); Mean Corpuscular Hgb 32.9 pg (27.0-32.0); Mean Corpuscular Volume 98.6 fL (81-99); Mean Platelet Vol. 10.5 fl (6.2-12.0); Monocyte% 7.6 % (0-10); NRBC Flagged by Analyzer 0 % (0-5); Neutrophil # 4.37 X10^3/uL (2.7-7.7); Neutrophil % 66.8 % (47-70); Platelet Count 218 K/mm3 (150-450); RBC Distribution Width CV 12.2 % (11.6-14.6); RBC Distribution Width SD 44.2 fl (35.1-43.9); Red Blood Count 4.19 M/mm3 (4.2-5.4); White Blood Count 6.5 K/mm3 (4.4-11.0)
[2023-09-25 18:13] LABS: ALB/GLOB Ratio 1.1 RATIO (0.9-2.4); AST(SGOT) 57 U/L (15-37); Alanine Aminotransfer ALT/SGPT 22 U/L (13-56); Albumin, Serum 3.6 g/dL (3.2-5.0); Alkaline Phosphatase 89 U/L (45-117); Anion Gap 7 (5-15); BUN 18 mg/dL (7-18); BUN/Creat Ratio 22.6 RATIO (10-20); Calcium,Total 9.4 mg/dL (8.5-10.1); Chloride 106 mmol/L (98-107); EST Glomerular Filtration Rate 74 mL/min (>60); Est Glom Filt Rate - Afr Amer 89 mL/min (>60); Globulin 3.4 g/dL (2.2-4.2); Glucose 82 mg/dL (74-106); Potassium 4.3 mmol/L (3.5-5.1); Sodium Level 140 mmol/L (136-145); Thyroid Stim Hormone (TSH) 2.16 uIU/mL (0.358-3.74)
== END | disposition home or self-care (01) ==
PROVIDERS: PCP Family Medicine; Referring Provider Internal Medicine Cardiovascular Disease; Visit Provider Internal Medicine Cardiovascular Disease
DX: E03.9 Hypothyroidism, unspecified (principal); F42.9 Obsessive-compulsive disorder, unspecified; R01.1 Cardiac murmur, unspecified; R00.2 Palpitations; H93.A9 Pulsatile tinnitus, unspecified ear; R07.9 Chest pain, unspecified
CPT/HCPCS: 36415; 80053; 84439; 84443; 85025; 93225; 93226; 93306

== ENCOUNTER → 2023-10-30 | Outpatient (CLI) | payer MEDICARE, SELFPAY ==
--- NOTE | 2023-10-30 10:27 | RAD_ITS ---
STUDY: X-RAY - CERVICAL SPINE REASON FOR EXAM: Female, 78 years old. neck pain TECHNIQUE: 4 view(s) of the cervical spine were obtained. COMPARISON: None FINDINGS: Normal anterior atlantoaxial articulation. Normal odontoid process. Normal cervical lordosis. There is multi-level endplate spondylosis. Moderate disc space narrowing is present at C4-C5 and C5-C6 and C6-C7. Mild disc space narrowing is present at C3-C4. No demonstrated fracture or compression deformity. The soft tissue structures are unremarkable. RAD/Cerv Spine 2 or 3 Views IMPRESSION: 1. Multilevel degenerative disc disease. Electronically Signed: Jaime Desir MD at 11:24 EDT ,
[2023-10-30 13:01] LABS: Erythrocyte Sedimentation Rate 10 mm/hr (0-30)
[2023-10-30 13:49] LABS: Vitamin B12 737 pg/mL (211-911)
[2023-11-02 13:08] LABS: Free Lambda Light Chains 18.5 mg/L (5.7-26.3); Vitamin B1, Thiamine 155.5 nmol/L (66.5-200.0)
== END | disposition home or self-care (01) ==
LOC: MTLAB 10:27
PROVIDERS: PCP Family Medicine; Referring Provider Psychiatry & Neurology Neurology; Visit Provider Psychiatry & Neurology Neurology
DX: G44.209 Tension-type headache, unspecified, not intractable (principal); M54.2 Cervicalgia; G62.9 Polyneuropathy, unspecified
CPT/HCPCS: 36415; 72040; 82607; 82746; 83883; 84425; 85652

== ENCOUNTER → 2023-11-08 | Outpatient (CLI) | payer MEDICARE, SELFPAY ==
[2023-11-13 14:08] LABS: Albumin 3.7 g/dL (2.9-4.4); Alpha-1-Globulins 0.3 g/dL (0.0-0.4); Alpha-2-Globulins 0.7 g/dL (0.4-1.0); Gamma Globulin 0.8 g/dL (0.4-1.8); Immunoglobulin A 212 mg/dL (64-422); Immunoglobulin G 956 mg/dL (586-1602); Immunoglobulin M 75 mg/dL (26-217); PROEL- TOTAL PROTEIN 6.6 g/dL (6.0-8.5)
== END | disposition home or self-care (01) ==
LOC: MTLAB 15:21
PROVIDERS: PCP Family Medicine; Referring Provider Psychiatry & Neurology Neurology; Visit Provider Psychiatry & Neurology Neurology
DX: G62.9 Polyneuropathy, unspecified (principal)
CPT/HCPCS: 36415; 82784; 84165; 86334; 86335

== ENCOUNTER → 2024-09-23 | Outpatient (CLI) | payer MEDICARE, SELFPAY ==
[2024-09-23 18:01] LABS: Absolute Lymphocyte Count 1.72 X10^3/uL (0.83-4.51); Absolute Neutrophil Count 3.9 X10^3/uL (2.0-7.7); Basophil# 0.05 X10^3/uL; Basophil% 0.8 % (0-1); Eosinophil# 0.28 X10^3/uL; Eosinophils% 4.3 % (0-5); Hematocrit 41.2 % (37-47); Hemoglobin 13.7 g/dL (12.0-15.0); Lymphocyte # 1.72 X10^3/ul (0.83-4.51); Lymphocyte % 26.3 % (19-41); Mean Corp Hgb Conc 33.3 g/dL (32-36); Mean Corpuscular Hgb 32.9 pg (27.0-32.0); Mean Platelet Vol. 11.2 fl (6.2-12.0); Monocyte# 0.59 X10^3/uL; NRBC Flagged by Analyzer 0 % (0-5); Neutrophil # 3.87 X10^3/uL (2.7-7.7); Platelet Count 219 K/mm3 (150-450); RBC Distribution Width CV 12.4 % (11.6-14.6); RBC Distribution Width SD 45.7 fl (35.1-43.9); Red Blood Count 4.16 M/mm3 (4.2-5.4); White Blood Count 6.6 K/mm3 (4.4-11.0)
[2024-09-23 18:55] LABS: ALB/GLOB Ratio 1.5 RATIO (0.9-2.4); AST(SGOT) 52 U/L (<=31); Alanine Aminotransfer ALT/SGPT 29 U/L (<=34); Albumin, Serum 4.2 g/dL (3.4-4.8); Alkaline Phosphatase 94 U/L (35-104); Anion Gap 11 (5-15); BUN 26 mg/dL (4-19); BUN/Creat Ratio 30.4 RATIO (10-20); Calcium,Total 9.8 mg/dL (7.6-11.0); Carbon Dioxide 25.9 mmol/L (21.0-32.0); Chloride 105 mmol/L (98-108); Creatinine, Serum 0.84 mg/dL (0.70-1.20); EST Glomerular Filtration Rate 70 (>60); Globulin 2.8 g/dL (2.2-4.2); Glucose 93 mg/dL (70-99); Potassium 4.4 mmol/L (3.3-5.1); Sodium Level 141 mmol/L (133-145); Total Bilirubin 0.17 mg/dL (0.00-1.30)
[2024-09-23 19:22] LABS: Vitamin D,25 Hydroxy 33.8 ng/mL (30-100)
[2024-09-23 20:06] LABS: PTHIN 52 pg/mL (11-61)
== END | disposition home or self-care (01) ==
LOC: MTLAB 15:18
PROVIDERS: PCP Family Medicine; Referring Provider Family Medicine; Visit Provider Family Medicine
DX: M85.80 Other specified disorders of bone density and structure, unspecified site (principal); E03.9 Hypothyroidism, unspecified; F42.9 Obsessive-compulsive disorder, unspecified
CPT/HCPCS: 36415; 80053; 82306; 83970; 84439; 84443; 85025

== ENCOUNTER → 2025-03-13 | Outpatient (CLI) | payer MEDICARE, SELFPAY ==
--- NOTE | 2025-03-13 13:08 | BI_ITS ---
EXAM: SCRN MAMM (CAD)W/DAVID BILAT DATE: 03/13/2025 CLINICAL HISTORY: F, Age 80 y/o , SCREEN TECHNIQUE: SCRN MAMM (CAD)W/DAVID BILAT COMPARISON: Prior exam(s) dated 12/28/2022, 09/25/2018. FINDINGS: TISSUE DENSITY: There are scattered areas of fibroglandular density. Bilateral Breast Mammographic Findings: No significant masses, calcifications or other abnormalities are identified. BI/SCRN MAMM (CAD)W/DAVID BILAT IMPRESSION: There is no mammographic evidence of malignancy. OVERALL FINAL ASSESSMENT BI-RADS 1: NEGATIVE. RECOMMENDATION: Routine annual follow-up in 1 Year A letter with findings and recommendations will be mailed to the patient. Reading Location: [id number]
== END | disposition home or self-care (01) ==
LOC: OPBI 13:06
PROVIDERS: PCP Family Medicine; Referring Provider Obstetrics & Gynecology Gynecology; Visit Provider Obstetrics & Gynecology Gynecology
DX: Z12.31 Encounter for screening mammogram for malignant neoplasm of breast (principal)
CPT/HCPCS: 77063; 77067